=== PATIENT | male | born 1970 | race Caucasian/White ===

== ENCOUNTER 2022-05-03 10:29 | Emergency (ER) | payer OTHER ==
[2022-05-03] MEDS ORDERED: Acetaminophen/HYDROcodone 325-5 MG Tab PO ONE (13:36)
== END 2022-05-03 14:17 | disposition home or self-care (01) ==
LOC: MW.ED 10:29
DX: S62.232A Other displaced fracture of base of first metacarpal bone, left hand, initial encounter for closed fracture (principal); S62.341A Nondisplaced fracture of base of second metacarpal bone, left hand, initial encounter for closed fracture; S52.615A Nondisplaced fracture of left ulna styloid process, initial encounter for closed fracture; F17.210 Nicotine dependence, cigarettes, uncomplicated; W23.0XXA Caught, crushed, jammed, or pinched between moving objects, initial encounter
CPT/HCPCS: 73080; 73110; 73130; 99283; A9270